=== PATIENT | male | born 1995 | race Caucasian/White ===

== ENCOUNTER 2017-09-15 03:01 | Emergency (ER) | payer SELFPAY ==
[~2017-09-15] VITALS: Ht 188 cm; Wt 70.3 kg
[2017-09-15 04:42] VITALS: BP 119/74
--- NOTE | 2017-09-15 05:27 | NUR ---
INFORMED BY ADMITTING "PT LEFT"
== END 2017-09-15 05:28 | disposition left against medical advice (07) ==
LOC: ER 03:17
DX: Z53.21 Procedure and treatment not carried out due to patient leaving prior to being seen by health care provider (principal); R30.0 Dysuria
CPT/HCPCS: A4606; Z7610